=== PATIENT | male | born 1955 | race Caucasian/White ===

== ENCOUNTER 2017-03-02 22:23 | Emergency (ER) | payer OTHER ==
--- NOTE | 2017-03-02 23:33 | DIAGNOSTIC IMAGING REPORT ---
PROCEDURE: XR HAND 3 OR 4 VIEWS - LEFT INDICATION: PAIN TECHNIQUE: Four views. COMPARISON: Left hand x-ray 06/14/2009. FINDINGS: Osseous structures, joint spaces, and soft tissues are normal. IMPRESSION: 1. Normal left hand.
--- NOTE | 2017-03-02 23:59 | ED ORDER SUMMARY ---
..... Patient: MAYELIN WEAVER OrderSheet [facility] VisitID: [id number] [address] [place] [address] 61y, M Registration Date/Time: 03/02/2017 ORDER SHEET Weight: 59.8 kg (stated) Allergies: Amitriptyline, Cipro, Cymbalta, Flagyl GENERAL ORDERS: Hand 3 or 4V Left Urgent (23:18 03/02/2017 AMcQuoid ER Tech1 verbal order read back to Alena REID) (23:23 Nurys MinorNPallavi) MEDICATION ORDERS: IV FLUIDS: ORDER SHEET NOTES: [Electronically signed by Christal Campbell R.N. (00:16 03/03/2017)] [Electronically signed by Thee Delatorre MD (03:02 03/03/2017)] [Electronically locked/signed by Christal Campbell R.N. (00:16 03/03/2017)]
--- NOTE | 2017-03-02 23:59 | ED CLINICAL REPORT ---
Clinical Report - Physicians/Mid Levels [facility] [address] [place] [address] 03/02/2017 22:25 Patient: MAYELIN WEAVER Time Seen: 22:41. Arrived- By private vehicle. Historian- patient. HISTORY OF PRESENT ILLNESS Chief Complaint: Injury to the left 5th (little) finger. The injury happened today. The patient sustained a moderate direct blow (he was helping his friend do some framing work. He fell and struck his left nondominant hand againstthe frame He now has painin the fifth finger primarily at the proximal interphalangeal joint). Occurred at a friend's house. Patient is experiencing mild pain. No other injury. REVIEW OF SYSTEMS The patient has had new onset of swelling of the left little finger (mild). He has had new onset of pain-related weakness of the left little finger (moderate). No tingling, numbness or skin laceration. All systems otherwise negative, except as recorded above. PAST HISTORY The patient's dominant hand is the right. Medications: Vitamin D3 Oral. Multivitamins Oral. OxyCODONE HCl Oral (Tablet 5 mg) 6 tablets, daily, colon pain. Keppra Oral 750 mg, 2x a day. TraZODone HCl Oral (Tablet 100 mg), at bedtime. Allergies: Amitriptyline. Cipro. (states he got CDiff last time) Cymbalta. Flagyl. (states he got CDiff last time). SOCIAL HISTORY Smoker- current status unknown (cigar). Occasional alcohol use. History of occasional drug use: marijuana. FAMILY HISTORY No significant family medical history. ADDITIONAL NOTES The nursing notes have been reviewed. PHYSICAL EXAM Vital Signs: 03/02/2017 22:32 BP: 100/75. HR: 69. RR: 15. O2 saturation: 97%. Temp: 98.1 F. Pain level now: 10/06. Have been reviewed. Appearance: Alert. Head: Head atraumatic. Eyes: Pupils equal, round and reactive to light. ENT: Pharynx normal. Neck: Neck supple. CVS: Heart sounds normal. Respiratory: Decreased air movement. Abdomen: No visible injury. Back: Normal inspection. Skin: Skin warm and dry. Skin intact. Extremities: Left little finger: moderate tenderness and mild swelling of the PIP joint. Neurovascular intact distally. No deformity. Extremities otherwise negative. Neuro, Vascular and Tendons: Vascular status intact. Sensation intact. Motor intact. Neuro: No motor deficit. No sensory deficit. LABS, X-RAYS, AND EKG X-Rays: Left hand negative. The X-rays were interpreted by the radiologist and contemporaneously by me. PROGRESS AND PROCEDURES Patient/family counseled. Old medical records ordered. Disposition: Discharged. Condition: stable. CLINICAL IMPRESSION Contusion to the right ring finger. INSTRUCTIONS Apply ice for 20 minutes four times a day until better. Don't apply ice directly to skin and don't use while asleep. Warnings: COMPLICATIONS: Complications from this condition include: injury to a nerve, injury to a tendon and injury to a ligament. Future problems may include loss of function, pain and deformity. GENERAL WARNINGS: Return or contact your physician immediately if your condition worsens or changes unexpectedly, if not improving as expected, or if other problems arise. Prescription Medications: Ibuprofen 600 mg tablets: take 1 tablet orally every 8 hours as needed for pain. Dispense fifteen (15). No refill. Follow-up: Follow up with your doctor as needed. Understanding of the discharge instructions verbalized by patient. (Electronically signed by Thee Delatorre MD 03/03/2017 3:02)
--- NOTE | 2017-03-02 23:59 | ED ORDER SUMMARY ---
..... Patient: MAYELIN WEAVER OrderSheet [facility] VisitID: [id number] [address] [place] [address] 61y, M Registration Date/Time: 03/02/2017 ORDER SHEET Weight: 59.8 kg (stated) Allergies: Amitriptyline, Cipro, Cymbalta, Flagyl GENERAL ORDERS: Hand 3 or 4V Left Urgent (23:18 03/02/2017 AMcQuoid ER Tech1 verbal order read back to Alena REID) (23:23 Nurys MinorNPallavi) MEDICATION ORDERS: IV FLUIDS: ORDER SHEET NOTES: [Electronically signed by Christal Campbell R.N. (00:16 03/03/2017)] [Electronically signed by Thee Delatorre MD (03:02 03/03/2017)] [Electronically locked/signed by Christal Campbell R.N. (00:16 03/03/2017)]
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
--- NOTE | 2017-03-03 03:02 | ED MED RECONCILIATION SUMMARY ---
Patient: MAYELIN WEAVER Medication Reconciliation Report [facility] VisitID: [id number] [place] [address] 61y, M Registration Date/Time: 03/02/2017 Weight: 59.8 kg Height/Length: 71 in. BMI: 18.4 ALLERGIES: Amitriptyline, Cipro, Cymbalta, Flagyl The patient's Home Medications are listed below: THE FOLLOWING MEDICATIONS NEED TO BE RECONCILED: Keppra Oral 750 mg, 2x a day Multivitamins Oral OxyCODONE HCl Oral (5 mg) 6 tablets, daily, colon pain TraZODone HCl Oral (100 mg), at bedtime Vitamin D3 Oral The source(s) of the original Home Medication information: Not obtained. The following Medications were given to the patient in the Emergency Department: None. The following Medications were prescribed to the patient: Ibuprofen 600 mg tablets: take 1 tablet orally every 8 hours as needed for pain. Dispense fifteen (15). No refill. -- Thee Delatorre MD
--- NOTE | 2017-03-03 03:02 | ED MAR SUMMARY ---
..... Medication Administration Record [facility] [address] [place], [place] [id number] Patient: MAYELIN WEAVER Visit ID: [id number] 61y, M Weight: 59.8 kg Height/Length: 71 in BMI: 18.4 ALLERGIES: Amitriptyline, Cipro, Cymbalta, Flagyl
--- NOTE | 2017-03-03 03:02 | ED MAR SUMMARY ---
..... Medication Administration Record [facility] [address] [place] [id number] Patient: MAYELIN WEAVER Visit ID: [id number] 61y, M Weight: 59.8 kg Height/Length: 71 in BMI: 18.4 ALLERGIES: Amitriptyline, Cipro, Cymbalta, Flagyl
--- NOTE | 2017-03-03 03:02 | ED MED RECONCILIATION SUMMARY ---
Patient: MAYELIN WEAVER Medication Reconciliation Report [facility] VisitID: [id number] [place] [address] 61y, M Registration Date/Time: 03/02/2017 Weight: 59.8 kg Height/Length: 71 in. BMI: 18.4 ALLERGIES: Amitriptyline, Cipro, Cymbalta, Flagyl The patient's Home Medications are listed below: THE FOLLOWING MEDICATIONS NEED TO BE RECONCILED: Keppra Oral 750 mg, 2x a day Multivitamins Oral OxyCODONE HCl Oral (5 mg) 6 tablets, daily, colon pain TraZODone HCl Oral (100 mg), at bedtime Vitamin D3 Oral The source(s) of the original Home Medication information: Not obtained. The following Medications were given to the patient in the Emergency Department: None. The following Medications were prescribed to the patient: Ibuprofen 600 mg tablets: take 1 tablet orally every 8 hours as needed for pain. Dispense fifteen (15). No refill. -- Thee Delatorre MD
--- NOTE | 2017-03-03 03:02 | ED DISCHARGE INSTRUCTIONS ---
Patient: MAYELIN WEAVER General Instructions [facility] VisitID: [id number] [place] [address] 61y, M Registration Date/Time: 03/02/2017 Contusion to the right ring finger. INSTRUCTIONS Apply ice for 20 minutes four times a day until better. Don't apply ice directly to skin and don't use while asleep. Warnings: COMPLICATIONS: Complications from this condition include: injury to a nerve, injury to a tendon and injury to a ligament. Future problems may include loss of function, pain and deformity. GENERAL WARNINGS: Return or contact your physician immediately if your condition worsens or changes unexpectedly, if not improving as expected, or if other problems arise. Prescription Medications: Ibuprofen 600 mg tablets: take 1 tablet orally every 8 hours as needed for pain. Dispense fifteen (15). No refill. Follow-up: Follow up with your doctor as needed. Understanding of the discharge instructions verbalized by patient. ADDITIONAL INFORMATION Contusion: Finger You have a CONTUSION of your finger. This causes local pain, swelling and sometimes bruising. There are no broken bones. This injury takes a few days to a few weeks to heal. A finger contusion may be treated with a splint or "es tape" (taping the injured finger to the one next to it for support). Minor contusions may require no additional support. Home Care: 1) Keep your hand elevated to reduce pain and swelling. This is very important during the first 48 hours. 2) Apply an ice pack (ice cubes in a plastic bag, wrapped in a towel) over the injured area for 20 minutes every 1-2 hours the first day. You should continue with ice packs 3-4 times a day for the next two days. Continue the use of ice packs for relief of pain and swelling as needed. 3) If es tape was applied and it becomes wet or dirty, change it. You may replace it with paper, plastic or cloth tape. Cloth tape and paper tapes must be kept dry. Keep the es tape in place for at least one week. 4) You may use acetaminophen (Tylenol) or ibuprofen (Motrin, Advil) to control pain, unless another pain medicine was prescribed. [ NOTE : If you have chronic liver or kidney disease or ever had a stomach ulcer or GI bleeding, talk with your doctor before using these medicines.] Follow Up with your doctor or this facility if your injury does not start to improve within the next THREE days. [NOTE: If X-rays were taken, they will be reviewed by a radiologist. You will be notified of any new findings that may affect your care.] Get Prompt Medical Attention if any of the following occur: -- Pain or swelling increases -- Redness, warmth or drainage -- Hand or fingers becomes cold, blue, numb or tingly Ibuprofen Oral tablet What is this medicine? IBUPROFEN (eye BYOO proe fen) is a non-steroidal anti-inflammatory drug (NSAID). It is used for dental pain, fever, headaches or migraines, osteoarthritis, rheumatoid arthritis, or painful monthly periods. It can also relieve minor aches and pains caused by a cold, flu, or sore throat. How should I use this medicine? Take this medicine by mouth with a glass of water. Follow the directions on the prescription label. Take this medicine with food if your stomach gets upset. Try to not lie down for at least 10 minutes after you take the medicine. Take your medicine at regular intervals. Do not take your medicine more often than directed. A special MedGuide will be given to you by the pharmacist with each prescription and refill. Be sure to read this information carefully each time. Talk to your tape recorder mechanic regarding the use of this medicine in children. Special care may be needed. What side effects may I notice from receiving this medicine? Side effects that you should report to your doctor or health physician primary care sports medicine as soon as possible: allergic reactions like skin rash, itching or hives, swelling of the face, lips, or tongue black or bloody stools, blood in the urine or in vomit breathing problems changes in vision chest pain general ill feeling or flu-like symptoms nausea or vomiting redness, blistering, peeling or loosening of the skin, including inside the mouth slurred speech or weakness on one side of the body stomach pain unexplained weight gain or swelling unusually weak or tired yellowing of eyes or skin Side effects that usually do not require medical attention (report to your doctor or health physician primary care sports medicine if they continue or are bothersome): constipation or diarrhea dizziness gas or heartburn stomach upset What may interact with this medicine? Do not take this medicine with any of the following medications: cidofovir ketorolac methotrexate pemetrexed This medicine may also interact with the following medications: alcohol aspirin diuretics lithium other drugs for inflammation like prednisone warfarin What if I miss a dose? If you miss a dose, take it as soon as you can. If it is almost time for your next dose, take only that dose. Do not take double or extra doses. Where should I keep my medicine? Keep out of the reach of children. Store at room temperature between 15 and 30 degrees C (59 and 86 degrees F). Keep container tightly closed. Throw away any unused medicine after the expiration date. What should I tell my health care provider before I take this medicine? They need to know if you have any of these conditions: asthma cigarette smoker drink more than 3 alcohol containing drinks a day heart disease or circulation problems such as heart failure or leg edema (fluid retention) high blood pressure kidney disease liver disease stomach bleeding or ulcers an unusual or allergic reaction to ibuprofen, aspirin, other NSAIDS, other medicines, foods, dyes, or preservatives or trying to get breast-feeding What should I watch for while using this medicine? Tell your doctor or healthcare professional if your symptoms do not start to get better or if they get worse. This medicine does not prevent heart attack or stroke. In fact, this medicine may increase the chance of a heart attack or stroke. The chance may increase with longer use of this medicine and in people who have heart disease. If you take aspirin to prevent heart attack or stroke, talk with your doctor or health physician primary care sports medicine. Do not take other medicines that contain aspirin, ibuprofen, or naproxen with this medicine. Side effects such as stomach upset, nausea, or ulcers may be more likely to occur. Many medicines available without a prescription should not be taken with this medicine. This medicine can cause ulcers and bleeding in the stomach and intestines at any time during treatment. Ulcers and bleeding can happen without warning symptoms and can cause . To reduce your risk, do not smoke cigarettes or drink alcohol while you are taking this medicine. You may get drowsy or dizzy. Do not drive, use machinery, or do anything that needs mental alertness until you know how this medicine affects you. Do not stand or sit up quickly, especially if you are an older patient. This reduces the risk of dizzy or fainting spells. This medicine can cause you to bleed more easily. Try to avoid damage to your teeth and gums when you brush or floss your teeth. You have been given the following additional information: Finger Contusion Ibuprofen Oral tablet (Electronically signed by Thee Delatorre MD 03/03/2017 3:02)
== END 2017-03-03 00:12 | disposition home or self-care (01) ==
LOC: ED SRH 22:23
DX: S60.222A Contusion of left hand, initial encounter (principal); W20.8XXA Other cause of strike by thrown, projected or falling object, initial encounter; Y93.89 Activity, other specified; Y92.019 Unspecified place in single-family (private) house as the place of occurrence of the external cause; Y99.8 Other external cause status; J44.9 Chronic obstructive pulmonary disease, unspecified; I10 Essential (primary) hypertension; G40.909 Epilepsy, unspecified, not intractable, without status epilepticus; Z79.891 Long term (current) use of opiate analgesic; Z79.899 Other long term (current) drug therapy